=== PATIENT | male | born 2000 | race Hispanic/Latino ===

== ENCOUNTER 2022-06-15 09:28 | Emergency (ER) | payer BC | END 2022-06-15 10:06 | disposition left against medical advice (07) | LOC: ERS 09:28 | DX: Z53.21 Procedure and treatment not carried out due to patient leaving prior to being seen by health care provider (principal) | CPT/HCPCS: 71045; 93005; 94760 ==

== ENCOUNTER 2022-06-22 21:07 | Observation (INO) | payer BC ==
[2022-06-22 23:03] LABS: #Eosinphils 0.1 thou/uL (0.0-0.7); #Lymphocytes 1.4 thou/uL (1.20-3.40); #Monocytes 0.5 thou/uL (0.11-0.59); %Basophils 0.2 % (0.0-1.0); %Eosinophils 0.7 % (0.0-10.0); %Monocytes 6.2 % (0.0-10.0); %Neutrophils 74.9 % (42.0-75.0); Mean Corpuscular HGB CONC 34.6 g/dL (32.0-36.0); Mean Corpuscular Hemoglobin 31.2 pg (27.0-31.0); Mean Platelet Volume 10.1 fL (7.4-10.4); Platelet Count 135 10x3/uL (130-400); RBC Distribution Width 10.9 % (11.5-14.5); Red Blood Cell (RBC) Count 4.82 mill/uL (4.70-6.10)
[2022-06-22 23:25] LABS: ALT (SGPT) 17 U/L (8-55); AST (SGOT) 21 U/L (5-34); Albumin 4.7 g/dL (3.5-5.0); Alkaline Phosphatase 83 U/L (40-110); Anion Gap 13 mmol/L (10-20); BUN (Urea Nitrogen) 15 mg/dL (8.9-20.6); Bilirubin, Total 0.4 mg/dL (0.2-1.2); Calc. Creatinine Clearance 0 mL/min (70-130); Calcium 8.9 mg/dL (7.8-10.44); Carbon Dioxide 26 mmol/L (22-29); Chloride 101 mmol/L (98-107); Estimated GFR 100; Globulin 2.7 g/dL (2.4-3.5); Glucose 113 mg/dL (70-105); Lipase 25 U/L (8-78); Protein, Total 7.4 g/dL (6.0-8.3); Sodium 136 mmol/L (136-145)
[2022-06-23] MEDS ORDERED: Nitroglycerin 2% Ointment 1 INCH/1 GM Packet ONE (03:15)
[2022-06-23 05:45] LABS: Troponin I Less than 0.010 ng/mL (< 0.028)
[2022-06-23] MEDS ORDERED: Ondansetron PF 4 MG/2 ML Vial IVP PRN (07:51)
[2022-06-23] MEDS ORDERED: Acetaminophen 325 MG TAB PO PRN (07:51)
[2022-06-23] MEDS ORDERED: Ondansetron ODT 4 MG TAB PO PRN (07:51)
[2022-06-23 08:49] VITALS: BMI 31.4
[2022-06-23 09:24] LABS: Troponin I Less than 0.010 ng/mL (< 0.028)
[2022-06-23] MEDS ORDERED: Iopamidol-370 76% 500 ML 1 ML ONE (13:16)
[2022-06-23] MEDS ORDERED: Ketorolac Tromethamine 30 MG/ML VIAL IVP PRN (13:20)
[2022-06-23] MEDS ORDERED: Ketorolac Tromethamine 30 MG/ML VIAL IVP SCH (13:45)
[2022-06-23] MEDS ORDERED: FLU VACC QS2022-23(6MOS UP)/PF 60 MCG/0.5 ML SYRINGE IM ONE (14:00)
[2022-06-23] MEDS ORDERED: Lorazepam 0.5 MG TAB PO PRN (17:24)
[2022-06-23] MEDS ORDERED: ALPRAZolam 0.5 MG TAB PO PRN (17:25)
[2022-06-24 05:11] LABS: #Eosinphils 0.1 thou/uL (0.0-0.7); #Lymphocytes 1.9 thou/uL (1.20-3.40); #Monocytes 0.4 thou/uL (0.11-0.59); #Neutrophils 3.1 thou/uL (1.40-6.50); %Basophils 0.3 % (0.0-1.0); %Eosinophils 1.4 % (0.0-10.0); %Lymphocytes 34.2 % (21.0-51.0); %Monocytes 7.4 % (0.0-10.0); %Neutrophils 56.7 % (42.0-75.0); Hemoglobin 14.6 g/dL (14.0-18.0); Mean Corpuscular HGB CONC 33.7 g/dL (32.0-36.0); Mean Corpuscular Hemoglobin 30.3 pg (27.0-31.0); Mean Corpuscular Volume 89.8 fl (78.0-98.0); Mean Platelet Volume 9.4 fL (7.4-10.4); Platelet Count 128 10x3/uL (130-400); RBC Distribution Width 10.8 % (11.5-14.5); Red Blood Cell (RBC) Count 4.82 mill/uL (4.70-6.10); White Blood Cell (WBC) Count 5.4 10x3/uL (4.8-10.8)
[2022-06-24 05:37] LABS: Anion Gap 12 mmol/L (10-20); BUN (Urea Nitrogen) 17 mg/dL (8.9-20.6); Calc. Creatinine Clearance 171 mL/min (70-130); Carbon Dioxide 25 mmol/L (22-29); Chloride 105 mmol/L (98-107); Estimated GFR 126; Glucose 89 mg/dL (70-105); Potassium 4.2 mmol/L (3.5-5.1); Sodium 138 mmol/L (136-145)
[2022-06-24 08:17] VITALS: BP 106/53; TEMP 97.6
[2022-06-24] MEDS ORDERED: Ibuprofen 600 MG TAB PO SCH (15:00)
[2022-06-24] MEDS ORDERED: Ibuprofen 200 MG TAB PO SCH (15:00)
== END 2022-06-24 11:50 | disposition home or self-care (01) ==
LOC: ERS 21:07 → ERHOLD 06-23 02:56 → 2SW 06-23 08:36
PROVIDERS: ADMIT Family Medicine; ATTEND Family Medicine
DX: R07.89 Other chest pain (principal); R00.2 Palpitations; R55 Syncope and collapse; I45.10 Unspecified right bundle-branch block; I51.7 Cardiomegaly; Z87.74 Personal history of (corrected) congenital malformations of heart and circulatory system; Z20.822 Contact with and (suspected) exposure to COVID-19
CPT/HCPCS: 36415; 71046; 71275; 74174; 80048; 80053; 83690; 83735; 84443; 84484; 85025; 93005; 94760; 96374; 96376; G0378; J1885; Q9967; U0003; U0005

== ENCOUNTER 2022-07-01 12:46 | Emergency (ER) | payer BC ==
[2022-07-01] MEDS ORDERED: Ibuprofen 800 MG TAB ONE (13:13)
[2022-07-01] MEDS ORDERED: Acetaminophen 500 MG TAB ONE (13:13)
== END 2022-07-01 16:57 | disposition home or self-care (01) ==
LOC: ERS 12:46
DX: R00.2 Palpitations (principal); R53.82 Chronic fatigue, unspecified; Z20.822 Contact with and (suspected) exposure to COVID-19
CPT/HCPCS: 87081; 87430; 87804; 93005; U0003; U0005

== ENCOUNTER 2022-07-28 08:10 | Observation (INO) | payer BC ==
[2022-07-28] MEDS ORDERED: Aspirin Chewable 81 MG TAB ONE (08:27)
[2022-07-28 09:13] LABS: ALT (SGPT) 18 U/L (8-55); AST (SGOT) 19 U/L (5-34); Albumin 4.7 g/dL (3.5-5.0); Alkaline Phosphatase 65 U/L (40-110); Anion Gap 13 mmol/L (10-20); BUN (Urea Nitrogen) 9 mg/dL (8.9-20.6); Bilirubin, Total 0.9 mg/dL (0.2-1.2); CK (CPK) 131 U/L (30-200); Calc. Creatinine Clearance 0 mL/min (70-130); Calcium 9.2 mg/dL (7.8-10.44); Carbon Dioxide 28 mmol/L (22-29); Chloride 103 mmol/L (98-107); Estimated GFR 125; Globulin 2.6 g/dL (2.4-3.5); Glucose 78 mg/dL (70-105); Potassium 3.8 mmol/L (3.5-5.1); Protein, Total 7.3 g/dL (6.0-8.3); Sodium 140 mmol/L (136-145)
[2022-07-28] MEDS ORDERED: Acetaminophen 500 MG TAB ONE (09:57)
[2022-07-28] MEDS ORDERED: Ketorolac Tromethamine 30 MG/ML VIAL ONE (09:57)
[2022-07-28] MEDS ORDERED: Acetaminophen 325 MG TAB PO PRN (10:16)
[2022-07-28] MEDS ORDERED: Acetaminophen 650 MG Suppository PR PRN (10:16)
[2022-07-28 10:41] LABS: #Lymphocytes 1.4 thou/uL (1.20-3.40); #Monocytes 0.4 thou/uL (0.11-0.59); #Neutrophils 3.7 thou/uL (1.40-6.50); %Basophils 0.1 % (0.0-1.0); %Eosinophils 0.9 % (0.0-10.0); %Lymphocytes 25.1 % (21.0-51.0); %Monocytes 7.5 % (0.0-10.0); %Neutrophils 66.4 % (42.0-75.0); Hemoglobin 14.5 g/dL (14.0-18.0); Mean Corpuscular HGB CONC 32.9 g/dL (32.0-36.0); Mean Corpuscular Hemoglobin 29.5 pg (27.0-31.0); Mean Corpuscular Volume 89.7 fl (78.0-98.0); Platelet Count 125 10x3/uL (130-400); RBC Distribution Width 11.1 % (11.5-14.5); Red Blood Cell (RBC) Count 4.91 mill/uL (4.70-6.10); White Blood Cell (WBC) Count 5.5 10x3/uL (4.8-10.8)
[2022-07-28 11:04] LABS: Troponin I Less than 0.010 ng/mL (< 0.028)
[2022-07-28] MEDS ORDERED: Milrinone Lactate/D5W 20 MG in Premix Bag 1 BAG IV SCH (13:00)
[2022-07-28 14:00] LABS: SARS-CoV-2 NAA Rapid Test Not Detected (NotDetected)
[2022-07-28 15:51] LABS: #Eosinphils 0.1 thou/uL (0.0-0.7); #Lymphocytes 1.7 thou/uL (1.20-3.40); #Monocytes 0.4 thou/uL (0.11-0.59); #Neutrophils 3.7 thou/uL (1.40-6.50); %Basophils 0.5 % (0.0-1.0); %Lymphocytes 28.7 % (21.0-51.0); %Monocytes 7.2 % (0.0-10.0); %Neutrophils 62.6 % (42.0-75.0); Hemoglobin 14.6 g/dL (14.0-18.0); Mean Corpuscular HGB CONC 33.6 g/dL (32.0-36.0); Mean Corpuscular Hemoglobin 30.1 pg (27.0-31.0); Mean Corpuscular Volume 89.5 fl (78.0-98.0); Mean Platelet Volume 9.9 fL (7.4-10.4); Platelet Count 133 10x3/uL (130-400); RBC Distribution Width 10.9 % (11.5-14.5); Red Blood Cell (RBC) Count 4.84 mill/uL (4.70-6.10)
[2022-07-28 16:10] LABS: Magnesium 1.9 mg/dL (1.6-2.6)
[2022-07-28 16:16] LABS: Troponin I Less than 0.010 ng/mL (< 0.028)
[2022-07-29] MEDS ORDERED: Aspirin Chewable 81 MG TAB PO SCH (09:00)
== END 2022-07-28 16:45 | disposition short-term general hospital (02) ==
LOC: ERS 08:10 → ERHOLD 10:19
PROVIDERS: ADMIT Hospitalist; ATTEND Hospitalist
DX: I50.82 Biventricular heart failure (principal); Q22.0 Pulmonary valve atresia; Q21.0 Ventricular septal defect; I37.2 Nonrheumatic pulmonary valve stenosis with insufficiency; I50.20 Unspecified systolic (congestive) heart failure; Z79.82 Long term (current) use of aspirin; Z95.4 Presence of other heart-valve replacement; Z20.822 Contact with and (suspected) exposure to COVID-19
CPT/HCPCS: 36415; 71045; 80053; 82550; 83735; 83880; 84484; 85025; 93005; 93306; 96374; 96375; G0378; J1885; U0002

== ENCOUNTER 2024-01-14 08:36 | Emergency (ER) | payer BC ==
[2024-01-14] MEDS ORDERED: Ketorolac Tromethamine 30 MG (1 mL) VIAL ONE (10:22)
== END 2024-01-14 10:36 | disposition home or self-care (01) ==
LOC: ERS 08:36
DX: M79.645 Pain in left finger(s) (principal)
CPT/HCPCS: 96372; J1885

== ENCOUNTER 2025-02-15 12:17 | Emergency (ER) | payer BC, SELFPAY ==
[2025-02-15 14:31] LABS: #Basophils Less than 0.03 10x3/uL (0.0-0.2); #Eosinophils Less than 0.03 10x3/uL (0.0-0.7); #Monocytes 0.52 10x3/uL (0.11-0.59); #Neutrophils 4.37 10x3/uL (1.40-6.50); %Basophils 0.2 % (0.0-1.0); %Eosinophils 0.3 % (0.0-10.0); %Lymphocytes 24.5 % (21.0-51.0); %Monocytes 8.0 % (0.0-10.0); %Neutrophils 66.8 % (42.0-75.0); Hematocrit 47.0 % (42.0-52.0); Hemoglobin 15.5 g/dL (14.0-18.0); Mean Corpuscular Hemoglobin 28.5 pg (27.0-31.0); Mean Corpuscular Volume 86.4 fL (78.0-98.0); Platelet Count 147 10x3/uL (130-400); Red Blood Cell (RBC) Count 5.44 mill/uL (4.70-6.10); White Blood Cell (WBC) Count 6.53 10x3/uL (4.8-10.8)
[2025-02-15 14:47] LABS: ALT (SGPT) 19 U/L (Less than 45); AST (SGOT) 21 U/L (11-34); Albumin 4.5 g/dL (3.1-4.5); Alkaline Phosphatase 71 U/L (40-110); Anion Gap 11 mmol/L (10-20); BUN (Urea Nitrogen) 13 mg/dL (8.9-20.6); Bilirubin, Total 0.9 mg/dL (0.3-1.2); Calc. Creatinine Clearance 0 mL/min (70-130); Calcium 8.6 mg/dL (7.8-10.44); Carbon Dioxide 27 mmol/L (22-29); Chloride 102 mmol/L (98-107); Globulin 2.3 g/dL (2.4-3.5); Glucose 89 mg/dL (70-105); Potassium 4.2 mmol/L (3.5-5.1); Sodium 136 mmol/L (136-145)
== END 2025-02-15 16:23 | disposition home or self-care (01) ==
LOC: ERS 12:17
DX: I51.7 Cardiomegaly (principal); I50.20 Unspecified systolic (congestive) heart failure; Q22.0 Pulmonary valve atresia; Z79.82 Long term (current) use of aspirin
CPT/HCPCS: 71045; 80053; 84484; 85025; 93005; 94760